=== PATIENT | male | born 1970 | race African-American/Black ===

== ENCOUNTER 2016-12-27 10:26 | Emergency (ER) | payer MEDICAID ==
[~2016-12-27] VITALS: Ht 190.5 cm; Wt 109.0 kg
[2016-12-27] MEDS ORDERED: KETOROLAC 30MG/ML VIAL IM ONE (14:30)
[2016-12-27] MEDS ORDERED: BACITRACIN ZINC OINT UDPKT TOP ONE (14:30)
[2016-12-27] MEDS ORDERED: LIDOCAINE HCL 1% 20ML VIAL (Pyxis) INJ MC ONE (14:30)
[2016-12-27] MEDS ORDERED: IBUPROFEN 600MG TABLET PO ONE (15:30)
[2016-12-27 15:58] VITALS: BP 181/107
== END 2016-12-27 16:01 | disposition home or self-care (01) ==
LOC: ER 10:26
DX: L02.414 Cutaneous abscess of left upper limb (principal); I10 Essential (primary) hypertension; F17.210 Nicotine dependence, cigarettes, uncomplicated
CPT/HCPCS: 10061; 96372; 99284; J1885; J3490; Z7610

== ENCOUNTER 2016-12-29 11:47 | Emergency (ER) | payer MEDICAID ==
[~2016-12-29] VITALS: Ht 190.5 cm; Wt 109.0 kg
[2016-12-29 16:00] VITALS: BP 154/100
== END 2016-12-29 16:06 | disposition home or self-care (01) ==
LOC: ER 11:47
DX: L02.412 Cutaneous abscess of left axilla (principal); I10 Essential (primary) hypertension; F17.200 Nicotine dependence, unspecified, uncomplicated; Z98.890 Other specified postprocedural states
CPT/HCPCS: 99283

== ENCOUNTER 2019-01-28 19:45 | Emergency (ER) | payer MEDICAID, OTHER ==
[~2019-01-28] VITALS: Ht 190.5 cm; Wt 105.0 kg
[2019-01-28 23:11] LABS: BASOPHILS % 0.2 % (0.0-2.0); EOSINOPHILS % 0.2 % (0.0-5.0); HEMATOCRIT. 36.3 % (42.0-52.0); HEMOGLOBIN. 12.4 g/dL (14.0-18.0); LYMPHOCYTES % 8.4 % (20.0-50.0); MEAN CORPUSCULAR HEMOGLOBIN 33.7 pg (28.0-32.0); MEAN CORPUSCULAR VOLUME 98.3 fL (80.0-94.0); MEAN PLATELET VOLUME 8.2 fl (7.4-10.4); MONOCYTES % 5.2 % (2.0-8.0); PLATELET 352 x1000/uL (130-400); RED BLOOD CELL COUNT 3.69 mill/uL (4.7-6.1); RED CELL DISTRIBUTION WIDTH 15.3 % (11.6-14.6)
[2019-01-28] MEDS ORDERED: HYDROCODONE/ACETAMINOPHEN 10/325MG TABLET PO ONE (23:45)
[2019-01-29 04:15] VITALS: BP 159/90
== END 2019-01-29 04:22 | disposition home or self-care (01) ==
LOC: ER 20:14
DX: M96.831 Postprocedural hemorrhage of a musculoskeletal structure following other procedure (principal); I10 Essential (primary) hypertension; F17.210 Nicotine dependence, cigarettes, uncomplicated; F12.10 Cannabis abuse, uncomplicated; Z98.890 Other specified postprocedural states
CPT/HCPCS: 36415; 99283; 99406